=== PATIENT | female | born 1990 | race Caucasian/White ===

== ENCOUNTER 2016-05-21 18:48 | Emergency (ER) | payer MEDICAID, OTHER, SELFPAY ==
[~2016-05-21] VITALS: Ht 154.9 cm; Wt 68.0 kg
[~2016-05-21 18:48] MED LIST: OXYC1SOL
[2016-05-21] MEDS ORDERED: CITA20TA4 PO (19:10)
[2016-05-21] MEDS ORDERED: metroNIDAZOLE (FLAGYL) 500 MG TAB PO ONE (23:45)
[2016-05-21] MEDS ORDERED: FLAG500T PO (23:55)
[2016-05-22 00:06] VITALS: BP 117/69
== END 2016-05-22 00:10 | disposition home or self-care (01) ==
LOC: M ED 19:46
DX: N76.0 Acute vaginitis (principal); R21 Rash and other nonspecific skin eruption; Z88.1 Allergy status to other antibiotic agents

== ENCOUNTER → 2016-06-08 | Outpatient (CLI) | payer OTHER ==
[~2016-06-08] MED LIST changes: +CITA20TA4 PO; +FLAG500T PO
[2016-06-08 17:46] LABS: FOLLICLE STIMULATING HORMONE 5.6 mIU/mL; LUTEINIZING HORMONE 12.3 mIU/mL; PROGESTERONE 0.5 NG/ML; PROLACTIN 8.8 NG/ML
[2016-06-08 17:50] LABS: FREE T4 0.94 NG/DL (0.76-1.46)
== END ==
LOC: M SMT 13:12
PROVIDERS: ATTEND Specialist
DX: N93.8 Other specified abnormal uterine and vaginal bleeding (principal)

== ENCOUNTER → 2016-07-11 | Outpatient (REF) | payer OTHER | LOC: M LAB REF 19:36 | PROVIDERS: ATTEND Physician Assistant | DX: N39.0 Urinary tract infection, site not specified (principal) ==

== ENCOUNTER → 2016-07-17 | Outpatient (REF) | payer OTHER ==
[2016-07-17 18:15] LABS: MEAN CORPUSCULAR HEMOGLOBIN 30.3 pg (27.0-33.0); MEAN CORPUSCULAR HGB CONC 34.1 g/dl (32.0-36.5); MEAN CORPUSCULAR VOLUME 88.8 fl (80.0-96.0); RED CELL DISTRIBUTION WIDTH 11.8 % (11.5-14.5); WHITE BLOOD COUNT 8.9 K/mm3 (4.0-10.0)
[2016-07-17 19:09] LABS: ALBUMIN/GLOBULIN RATIO 1.11 (1.00-1.93); ALKALINE PHOSPHATASE 66 U/L (45-117); ALT/SGPT 88 U/L (12-78); ANION GAP 8 MEQ/L (8-16); AST/SGOT 56 U/L (15-37); BILIRUBIN,TOTAL 0.6 MG/DL (0.2-1.0); BLOOD UREA NITROGEN 9 MG/DL (7-18); CARBON DIOXIDE LEVEL 27 MEQ/L (21-32); CHLORIDE LEVEL 103 MEQ/L (98-107); CHOLESTEROL LEVEL 180 MG/DL (<200); CREATININE FOR GFR 0.77 MG/DL (0.55-1.02); GLOMERULAR FILTRATION RATE > 60.0 (>60); GLUCOSE, FASTING 93 MG/DL (70-105); POTASSIUM SERUM 4.1 MEQ/L (3.5-5.1); SODIUM LEVEL 138 MEQ/L (136-145); TOTAL PROTEIN 7.6 GM/DL (6.4-8.2); TRIGLYCERIDES LEVEL 98 MG/DL (<150)
== END ==
LOC: M LAB REF 17:16
PROVIDERS: ATTEND Nurse Practitioner Family
DX: Z13.220 Encounter for screening for lipoid disorders (principal); Z13.29 Encounter for screening for other suspected endocrine disorder

== ENCOUNTER → 2016-08-13 | Outpatient (REF) | payer MEDICAID ==
[2016-08-13 13:59] LABS: CONTROL LINE HCG INT CTR LINE PRESENT
[2016-08-22 14:17] LABS: ALT 111 IU/L (0-40); GGT 15 IU/L (0-60); HAPTOGLOBIN 17 mg/dL (34-200); HCV NS5A DRUG RESISTANCE ASSAY Indicated (.); HEPATITIS C QUANTITATION 39850 IU/mL (.); NECROINFLAM SCORE 0.55 (0.00-0.17); NECROINFLAMM GRADE A2-Moderate activity (.); TOTAL BILIRUBIN 0.5 mg/dL (0.0-1.2)
== END ==
LOC: M SFHCPLAZ 10:36
PROVIDERS: ATTEND Internal Medicine Infectious Disease
DX: B19.20 Unspecified viral hepatitis C without hepatic coma (principal)

== ENCOUNTER → 2016-12-10 | Outpatient (REF) | payer SELFPAY ==
[~2016-12-10] MED LIST changes: +MACR100C43 PO; -OXYC1SOL; +OXYC1SOL3; +ZEPA1TAB
[2016-12-10 16:25] LABS: ALBUMIN 3.8 GM/DL (3.2-5.2); ALBUMIN/GLOBULIN RATIO 1.09 (1.00-1.93); BILIRUBIN,DIRECT 0.1 MG/DL (0.0-0.2); BILIRUBIN,TOTAL 0.5 MG/DL (0.2-1.0); TOTAL PROTEIN 7.3 GM/DL (6.4-8.2)
[2016-12-13 08:16] LABS: HEPATITIS C QUANTITATION HCV Not Detected IU/mL (.)
== END ==
LOC: M SFHCPLAZ 14:07
PROVIDERS: ATTEND Internal Medicine Infectious Disease
DX: B18.2 Chronic viral hepatitis C (principal)

== ENCOUNTER 2017-01-08 12:08 | Emergency (ER) | payer OTHER, SELFPAY ==
[~2017-01-08] VITALS: Ht 154.9 cm; Wt 71.1 kg
[~2017-01-08 12:08] MED LIST changes: -MACR100C43 PO; -ZEPA1TAB
[2017-01-08 12:09] VITALS: BP 120/68
[2017-01-08] MEDS ORDERED: ZEPA1TAB (12:16)
[2017-01-08 13:36] LABS: CONTROL LINE UCG INT CTR LINE PRESENT
[2017-01-08] MEDS ORDERED: MACR100C43 PO (13:44)
[2017-01-08] MEDS ORDERED: NITROFURANTOIN (MACROBID) 100 MG CAP PO ONE (13:45)
== END 2017-01-08 13:51 | disposition home or self-care (01) ==
LOC: M ED 12:08
DX: N39.0 Urinary tract infection, site not specified (principal); Z72.0 Tobacco use

== ENCOUNTER 2017-02-03 13:49 | Emergency (ER) | payer OTHER, SELFPAY ==
[~2017-02-03] VITALS: Ht 154.9 cm; Wt 65.9 kg
[2017-02-03 13:49] VITALS: BP 115/73
[~2017-02-03 13:49] MED LIST changes: +MACR100C43 PO; +ZEPA1TAB
== END 2017-02-03 14:00 | disposition left against medical advice (07) ==
LOC: M ED 13:49
DX: Z53.9 Procedure and treatment not carried out, unspecified reason (principal)

== ENCOUNTER 2017-02-15 12:21 | Day surgery (SDC) | payer OTHER, SELFPAY ==
[2017-02-15] MEDS ORDERED: KETOROLAC 30 MG/ML VIAL (J1885) IV (12:45)
[2017-02-15] MEDS ORDERED: ONDANSETRON 4MG/2ML VIAL (J2405) IV ×2 (12:45→19:45)
[2017-02-15 13:31] LABS: BASO % 0.3 % (0.0-1.0); EOS # 0.1 10^3/uL (0.0-0.50); EOS % 0.5 % (0.0-3.0); IMMATURE GRANULOCYTE % 0.2 % (0-0); LYMPH # 1.7 10^3/uL (1.5-6.5); LYMPH % 15.3 % (24.0-44.0); MEAN CORPUSCULAR HEMOGLOBIN 29.5 pg (27.0-33.0); MEAN CORPUSCULAR HGB CONC 33.3 g/dl (32.0-36.5); MEAN CORPUSCULAR VOLUME 88.6 fl (80.0-96.0); MONO # 0.6 10^3/uL (0.0-0.8); MONO % 5.3 % (0.0-5.0); NEUTROPHILS # 8.8 10^3/uL (1.8-7.7); NEUTROPHILS % 78.4 % (36.0-66.0); PLATELET COUNT, AUTOMATED 278 10^3/uL (150-450); RED CELL DISTRIBUTION WIDTH 11.8 % (11.5-14.5); WHITE BLOOD COUNT 11.2 10^3/uL (4.0-10.0)
[2017-02-15 13:58] LABS: ALBUMIN 3.5 GM/DL (3.2-5.2); ALKALINE PHOSPHATASE 40 U/L (45-117); ALT/SGPT 13 U/L (12-78); AMYLASE 27 U/L (25-115); ANION GAP 5 MEQ/L (8-16); AST/SGOT 11 U/L (7-37); BILIRUBIN,DIRECT 0.1 MG/DL (0.0-0.2); BILIRUBIN,TOTAL 0.7 MG/DL (0.2-1.0); BLOOD UREA NITROGEN 11 MG/DL (7-18); CALCIUM LEVEL 8.6 MG/DL (8.5-10.1); CARBON DIOXIDE LEVEL 29 MEQ/L (21-32); CHLORIDE LEVEL 104 MEQ/L (98-107); CREATININE FOR GFR 0.66 MG/DL (0.55-1.02); GLOMERULAR FILTRATION RATE > 60.0 (>60); GLUCOSE, FASTING 112 MG/DL (70-105); POTASSIUM SERUM 3.8 MEQ/L (3.5-5.1); SODIUM LEVEL 138 MEQ/L (136-145)
[2017-02-15 14:16] LABS: HCG, SERUM QUANTITATIVE 13549 MIU/ML
[2017-02-15] MEDS: METOCLOPRAMIDE INJ 10MG/2ML VIAL (J2765) IV (14:30)
[2017-02-15] MEDS: NS 1,000 ML IV ×2 (14:31→14:48)
[2017-02-15] MEDS: ACETAMINOPHEN 325 MG TAB PO (14:49)
[2017-02-15] MEDS: BUPIVACAINE HCL 0.25% 30 ML VIAL As Ordered (16:14)
[2017-02-15] MEDS ORDERED: fentaNYL 250 MCG/5 ML INJECTION (J3010) As Ordered (16:18)
[2017-02-15] MEDS ORDERED: PROPOFOL 200 MG/20 ML VIAL As Ordered (16:18)
[2017-02-15] MEDS ORDERED: LIDOCAINE 2% INJ 100 MG/5 ML SDV (FOR ANES.) As Ordered (16:18)
[2017-02-15] MEDS ORDERED: MIDAZOLAM INJ 2 MG/2 ML VIAL (J2250) As Ordered ×2 (16:18→17:58)
[2017-02-15] MEDS ORDERED: ROCURONIUM BROMIDE 50 MG/5 ML VIAL As Ordered (16:19)
[2017-02-15] MEDS ORDERED: GLYCOPYRROLATE INJ 0.2 MG/ML 2 ML VIAL As Ordered ×2 (16:19)
[2017-02-15] MEDS ORDERED: ONDANSETRON 4MG/2ML VIAL (J2405) As Ordered (16:19)
[2017-02-15] MEDS ORDERED: KETOROLAC 60 MG/2 ML VIAL (J1885) As Ordered (16:19)
[2017-02-15] MEDS ORDERED: dexameTHASONE 4 MG/ML 1ML VIAL (J1100) As Ordered ×2 (16:19)
[2017-02-15] MEDS ORDERED: NEOSTIGMINE 10 MG/10 ML VIAL (J2710) As Ordered (16:19)
[2017-02-15] MEDS: METHYLENE BLUE 0.5% (5MG/ML) 10 ML AMP (PROVAYBLUE)(Q9968 PER 1MG) As Ordered (16:19)
[2017-02-15] MEDS: ACETAMINOPHEN 650 MG SUPP As Ordered (17:40)
[2017-02-15] MEDS ORDERED: PHENYLephrine HCL 500 MCG/5 ML (100MCG/ML) SYRINGE (J2370) As Ordered ×2 (17:58→18:06)
[2017-02-15] MEDS ORDERED: ePHEDrine SULFATE 25 MG/5 ML(5MG/ML) SYRINGE As Ordered (18:06)
[2017-02-15] MEDS ORDERED: HYDROmorphone HCL 2 MG/ML 1ML VIAL (J1170) As Ordered (18:16)
[2017-02-15] MEDS: LIDOCAINE W/EPINEPHRINE 1% 20ML VIAL As Ordered (19:08)
[2017-02-15] MEDS ORDERED: fentaNYL 100 MCG/2 ML INJECTION (J3010) IV (19:45)
[2017-02-15] MEDS: LR 1,000 ML IV (19:45)
[2017-02-15] MEDS ORDERED: HYDROmorphone HCL 1 MG/ML SYRINGE (J1170) IV ×2 (19:45)
[2017-02-15] MEDS: PERCOCET 5MG/325MG TAB PO (21:02)
[2017-02-15] MEDS: IBUPROFEN 800 MG TAB PO (22:44)
[2017-02-16] MEDS: PERCOCET 5MG/325MG TAB PO ×2 (02:14→12:14)
[2017-02-16] MEDS: IBUPROFEN 800 MG TAB PO ×3 (05:10→17:47)
[2017-02-16 11:21] LABS: MEAN CORPUSCULAR HEMOGLOBIN 30.1 pg (27.0-33.0); MEAN CORPUSCULAR HGB CONC 33.7 g/dl (32.0-36.5); MEAN CORPUSCULAR VOLUME 89.3 fl (80.0-96.0); PLATELET COUNT, AUTOMATED 236 10^3/uL (150-450); WHITE BLOOD COUNT 18.8 10^3/uL (4.0-10.0)
[2017-02-16 12:49] LABS: IMMEDIATE SPIN CROSSMATCH 1 2
== END 2017-02-16 18:05 | disposition home or self-care (01) ==
LOC: M SDC 02-16 18:05 → M ED 12:21 → M SDC 16:21 → M OBS 21:15
DX: O00.101 Right tubal pregnancy without intrauterine pregnancy (principal); K66.1 Hemoperitoneum; N73.6 Female pelvic peritoneal adhesions (postinfective); B18.2 Chronic viral hepatitis C; R01.1 Cardiac murmur, unspecified; K21.9 Gastro-esophageal reflux disease without esophagitis; F41.9 Anxiety disorder, unspecified; F32.9 Major depressive disorder, single episode, unspecified; Z88.1 Allergy status to other antibiotic agents; Z79.899 Other long term (current) drug therapy; Z72.0 Tobacco use; Z86.59 Personal history of other mental and behavioral disorders; Z86.19 Personal history of other infectious and parasitic diseases
CPT/HCPCS: 59151

== ENCOUNTER → 2017-04-01 | Outpatient (REF) | payer OTHER ==
[2017-04-01 13:22] LABS: BASO # 0.1 10^3/uL (0.0-0.2); BASO % 0.7 % (0.0-1.0); EOS # 0.4 10^3/uL (0.0-0.50); EOS % 4.9 % (0.0-3.0); HEMATOCRIT 42.8 % (36.0-47.0); HEMOGLOBIN 13.7 g/dl (12.0-16.0); IMMATURE GRANULOCYTE % 0.3 % (0-0); LYMPH # 2.9 10^3/uL (1.5-6.5); LYMPH % 38.1 % (24.0-44.0); MEAN CORPUSCULAR VOLUME 90.7 fl (80.0-96.0); MONO # 0.6 10^3/uL (0.0-0.8); MONO % 7.2 % (0.0-5.0); NEUTROPHILS # 3.7 10^3/uL (1.8-7.7); NEUTROPHILS % 48.8 % (36.0-66.0); PLATELET COUNT, AUTOMATED 248 10^3/uL (150-450); RED BLOOD COUNT 4.72 10^6/uL (4.00-5.40); RED CELL DISTRIBUTION WIDTH 12.1 % (11.5-14.5); WHITE BLOOD COUNT 7.6 10^3/uL (4.0-10.0)
[2017-04-01 13:38] LABS: ALBUMIN 3.9 GM/DL (3.2-5.2); ALBUMIN/GLOBULIN RATIO 1.22 (1.00-1.93); ALKALINE PHOSPHATASE 53 U/L (45-117); ALT/SGPT 13 U/L (12-78); AST/SGOT 11 U/L (7-37); BILIRUBIN,DIRECT 0.1 MG/DL (0.0-0.2); BILIRUBIN,TOTAL 0.3 MG/DL (0.2-1.0); TOTAL PROTEIN 7.1 GM/DL (6.4-8.2)
[2017-04-03 08:06] LABS: HEPATITIS C QUANTITATION HCV Not Detected IU/mL (.)
== END ==
LOC: M SFHCPLAZ 10:49
DX: B18.2 Chronic viral hepatitis C (principal)

== ENCOUNTER 2017-05-09 19:54 | Emergency (ER) | payer OTHER ==
[2017-05-09 20:54] LABS: KETONE, URINE AUTO RFX TRACE mg/dL (NEGATIVE); LEUKOCYTE ESTERASE UR AUTO RFX NEGATIVE (NEGATIVE); NITRITE, URINE AUTO RFX NEGATIVE (NEGATIVE); RBC, URINE AUTO RFX 2 /HPF (0-3); SPECIFIC GRAVITY UR AUTO RFX 1.009 (1.002-1.035); SQUAM EPITHELIAL CELL UR AURFX 1 /HPF (0-6); WBC, URINE AUTO RFX 0 /HPF (0-3)
[2017-05-09] MEDS: metroNIDAZOLE (FLAGYL) 500 MG TAB PO (23:10)
[2017-05-09 23:31] LABS: CHLAMYDIA DNA AMPLIFICATION NEGATIVE (NEGATIVE); GC DNA AMPLIFICATION NEGATIVE (NEGATIVE)
== END 2017-05-09 23:11 | disposition home or self-care (01) ==
LOC: M ED 19:54
DX: N76.0 Acute vaginitis (principal); B18.2 Chronic viral hepatitis C; K21.9 Gastro-esophageal reflux disease without esophagitis; F17.210 Nicotine dependence, cigarettes, uncomplicated; F33.9 Major depressive disorder, recurrent, unspecified; F41.9 Anxiety disorder, unspecified; F19.10 Other psychoactive substance abuse, uncomplicated; Z88.1 Allergy status to other antibiotic agents; Z98.890 Other specified postprocedural states; Z86.19 Personal history of other infectious and parasitic diseases; Z87.42 Personal history of other diseases of the female genital tract; Z87.440 Personal history of urinary (tract) infections
CPT/HCPCS: 81001

== ENCOUNTER 2017-05-20 22:03 | Emergency (ER) | payer OTHER ==
[2017-05-21] MEDS: NS 1,000 ML IV (00:15)
[2017-05-21 00:21] LABS: APPEARANCE, URINE HAZY (CLEAR); BACTERIA, URINE AUTO NEGATIVE (NEGATIVE); BILIRUBIN, URINE AUTO NEGATIVE (NEGATIVE); BLOOD, URINE BLOOD NEGATIVE (NEGATIVE); COLOR, URINE YELLOW (YELLOW); GLUCOSE, URINE (UA) AUTO NEGATIVE (NEGATIVE); KETONE, URINE AUTO 1+ mg/dL (NEGATIVE); LEUKOCYTE ESTERASE, URINE AUTO 1+ (NEGATIVE); MUCUS, URINE SMALL (NEGATIVE); NITRITE, URINE AUTO NEGATIVE (NEGATIVE); PROTEIN, URINE AUTO NEGATIVE (NEGATIVE); RBC, URINE AUTO 4 /HPF (0-3); SPECIFIC GRAVITY URINE AUTO 1.014 (1.002-1.035); SQUAMOUS EPITHELIAL CELL UR AU 3 /HPF (0-6); UROBILINOGEN, URINE AUTO 0.2 mg/dL (0.0-2.0); WBC, URINE AUTO 1 /HPF (0-3)
[2017-05-21 00:25] LABS: CONTROL LINE HCG INT CTR LINE PRESENT; HCG, SERUM QUALITATIVE NEGATIVE (NEGATIVE)
[2017-05-21 00:30] LABS: BASO % 0.4 % (0.0-1.0); EOS % 0.4 % (0.0-3.0); HEMATOCRIT 42.9 % (36.0-47.0); HEMOGLOBIN 14.2 g/dl (12.0-16.0); IMMATURE GRANULOCYTE % 0.2 % (0-3.0); LYMPH # 1.2 10^3/uL (1.5-6.5); LYMPH % 26.2 % (24.0-44.0); MEAN CORPUSCULAR HEMOGLOBIN 28.6 pg (27.0-33.0); MEAN CORPUSCULAR HGB CONC 33.1 g/dl (32.0-36.5); MEAN CORPUSCULAR VOLUME 86.3 fl (80.0-96.0); MONO # 0.6 10^3/uL (0.0-0.8); MONO % 13.6 % (0.0-5.0); NEUTROPHILS # 2.7 10^3/uL (1.8-7.7); NEUTROPHILS % 59.2 % (36.0-66.0); PLATELET COUNT, AUTOMATED 176 10^3/uL (150-450); RED BLOOD COUNT 4.97 10^6/uL (4.00-5.40); RED CELL DISTRIBUTION WIDTH 11.9 % (11.5-14.5); WHITE BLOOD COUNT 4.5 10^3/uL (4.0-10.0)
[2017-05-21 00:34] LABS: ALBUMIN 3.8 GM/DL (3.2-5.2); ALBUMIN/GLOBULIN RATIO 1.27 (1.00-1.93); ALKALINE PHOSPHATASE 44 U/L (45-117); ALT/SGPT 16 U/L (12-78); ANION GAP 5 MEQ/L (8-16); AST/SGOT 18 U/L (7-37); BILIRUBIN,DIRECT 0.2 MG/DL (0.0-0.2); BILIRUBIN,TOTAL 0.5 MG/DL (0.2-1.0); BLOOD UREA NITROGEN 11 MG/DL (7-18); CALCIUM LEVEL 8.5 MG/DL (8.5-10.1); CARBON DIOXIDE LEVEL 26 MEQ/L (21-32); CHLORIDE LEVEL 107 MEQ/L (98-107); CREATININE FOR GFR 0.64 MG/DL (0.55-1.30); GLOMERULAR FILTRATION RATE > 60.0 (>60); GLUCOSE, FASTING 96 MG/DL (70-100); LIPASE 57 U/L (73-393); POTASSIUM SERUM 3.4 MEQ/L (3.5-5.1); SODIUM LEVEL 138 MEQ/L (136-145); TOTAL PROTEIN 6.8 GM/DL (6.4-8.2)
== END 2017-05-21 02:32 | disposition home or self-care (01) ==
LOC: M ED 22:03
DX: K52.9 Noninfective gastroenteritis and colitis, unspecified (principal); Z87.59 Personal history of other complications of pregnancy, childbirth and the puerperium; Z88.1 Allergy status to other antibiotic agents
CPT/HCPCS: 74176

== ENCOUNTER → 2017-08-08 | Outpatient (CLI) | payer OTHER ==
[~2017-08-08] MED LIST changes: -CITA20TA4 PO; -FLAG500T PO; +ISOVUE-370 76% 100ML VIAL (Q9967) As Ordered; -MACR100C43 PO; -OXYC1SOL3; -ZEPA1TAB
== END ==
LOC: M RADPRO 08:26
DX: N93.9 Abnormal uterine and vaginal bleeding, unspecified (principal); N83.8 Other noninflammatory disorders of ovary, fallopian tube and broad ligament
CPT/HCPCS: 58340

== ENCOUNTER 2017-08-15 15:27 | Emergency (ER) | payer OTHER ==
[2017-08-15 18:07] LABS: KETONE, URINE AUTO RFX NEGATIVE (NEGATIVE); RBC, URINE AUTO RFX 2 /HPF (0-3); SPECIFIC GRAVITY UR AUTO RFX 1.019 (1.002-1.035); SQUAM EPITHELIAL CELL UR AURFX 2 /HPF (0-6)
[2017-08-15 18:09] LABS: LEUKOCYTE ESTERASE UR AUTO RFX 3+ (NEGATIVE); NITRITE, URINE AUTO RFX POSITIVE (NEGATIVE); WBC, URINE AUTO RFX 130 /HPF (0-3)
[2017-08-15] MEDS: CIPROFLOXACIN 500 MG TAB PO (18:42)
[2017-08-15] MEDS: metroNIDAZOLE (FLAGYL) 500 MG TAB PO (18:42)
[2017-08-15 19:25] LABS: CHLAMYDIA DNA AMPLIFICATION NEGATIVE (NEGATIVE); GC DNA AMPLIFICATION NEGATIVE (NEGATIVE)
== END 2017-08-15 18:44 | disposition home or self-care (01) ==
LOC: M ED 15:27
DX: N30.00 Acute cystitis without hematuria (principal); N76.0 Acute vaginitis; N73.9 Female pelvic inflammatory disease, unspecified; F17.210 Nicotine dependence, cigarettes, uncomplicated; Z87.59 Personal history of other complications of pregnancy, childbirth and the puerperium; Z88.1 Allergy status to other antibiotic agents; Z86.19 Personal history of other infectious and parasitic diseases; Z79.899 Other long term (current) drug therapy
CPT/HCPCS: 81001

== ENCOUNTER 2017-10-08 20:17 | Emergency (ER) | payer OTHER ==
[2017-10-08] MEDS: ONDANSETRON 4 MG ORAL DISINTEGRATING TAB (Q0162 PER 1MG) PO (21:25)
[2017-10-08 21:29] LABS: BASO # 0.1 10^3/uL (0.0-0.2); BASO % 0.5 % (0.0-1.0); EOS # 0.1 10^3/uL (0.0-0.50); EOS % 1.1 % (0.0-3.0); HEMATOCRIT 45.1 % (36.0-47.0); IMMATURE GRANULOCYTE % 0.2 % (0-3.0); LYMPH # 3.3 10^3/uL (1.5-6.5); LYMPH % 26.2 % (24.0-44.0); MEAN CORPUSCULAR HEMOGLOBIN 30.4 pg (27.0-33.0); MEAN CORPUSCULAR HGB CONC 33.3 g/dl (32.0-36.5); MEAN CORPUSCULAR VOLUME 91.3 fl (80.0-96.0); MONO # 0.9 10^3/uL (0.0-0.8); MONO % 7.1 % (0.0-5.0); NEUTROPHILS # 8.2 10^3/uL (1.8-7.7); NEUTROPHILS % 64.9 % (36.0-66.0); PLATELET COUNT, AUTOMATED 278 10^3/uL (150-450); RED BLOOD COUNT 4.94 10^6/uL (4.00-5.40); RED CELL DISTRIBUTION WIDTH 12.1 % (11.5-14.5); WHITE BLOOD COUNT 12.7 10^3/uL (4.0-10.0)
[2017-10-08 21:45] LABS: ALBUMIN 4.2 GM/DL (3.2-5.2); ALBUMIN/GLOBULIN RATIO 1.17 (1.00-1.93); ALKALINE PHOSPHATASE 55 U/L (45-117); ALT/SGPT 23 U/L (12-78); ANION GAP 5 MEQ/L (8-16); AST/SGOT 17 U/L (7-37); BILIRUBIN,DIRECT 0.2 MG/DL (0.0-0.2); BILIRUBIN,TOTAL 0.8 MG/DL (0.2-1.0); BLOOD UREA NITROGEN 9 MG/DL (7-18); CALCIUM LEVEL 9.5 MG/DL (8.5-10.1); CARBON DIOXIDE LEVEL 30 MEQ/L (21-32); CHLORIDE LEVEL 104 MEQ/L (98-107); CREATININE FOR GFR 0.78 MG/DL (0.55-1.30); GLOMERULAR FILTRATION RATE > 60.0 (>60); GLUCOSE, FASTING 141 MG/DL (70-100); POTASSIUM SERUM 4.1 MEQ/L (3.5-5.1); SODIUM LEVEL 139 MEQ/L (136-145); TOTAL PROTEIN 7.8 GM/DL (6.4-8.2)
[2017-10-08 22:20] LABS: KETONE, URINE AUTO RFX 1+ mg/dL (NEGATIVE); MUCUS, URINE RFX SMALL (NEGATIVE); NITRITE, URINE AUTO RFX NEGATIVE (NEGATIVE); RBC, URINE AUTO RFX 2 /HPF (0-3); SPECIFIC GRAVITY UR AUTO RFX 1.008 (1.002-1.035); SQUAM EPITHELIAL CELL UR AURFX 1 /HPF (0-6); WBC, URINE AUTO RFX 1 /HPF (0-3)
[2017-10-08 22:30] LABS: LEUKOCYTE ESTERASE UR AUTO RFX TRACE (NEGATIVE)
== END 2017-10-08 23:15 | disposition home or self-care (01) ==
LOC: M ED 20:17
DX: A08.4 Viral intestinal infection, unspecified (principal); B19.20 Unspecified viral hepatitis C without hepatic coma; K21.9 Gastro-esophageal reflux disease without esophagitis; F41.9 Anxiety disorder, unspecified; F33.9 Major depressive disorder, recurrent, unspecified; N83.209 Unspecified ovarian cyst, unspecified side; F19.21 Other psychoactive substance dependence, in remission; Z88.1 Allergy status to other antibiotic agents; F17.210 Nicotine dependence, cigarettes, uncomplicated
CPT/HCPCS: Q0162

== ENCOUNTER 2017-12-09 14:56 | Emergency (ER) | payer OTHER ==
[2017-12-09 17:41] LABS: CHLAMYDIA DNA AMPLIFICATION NEGATIVE (NEGATIVE); GC DNA AMPLIFICATION NEGATIVE (NEGATIVE)
[2017-12-09 18:11] LABS: KETONE, URINE AUTO RFX NEGATIVE (NEGATIVE); LEUKOCYTE ESTERASE UR AUTO RFX NEGATIVE (NEGATIVE); NITRITE, URINE AUTO RFX NEGATIVE (NEGATIVE); RBC, URINE AUTO RFX 0 /HPF (0-3); SPECIFIC GRAVITY UR AUTO RFX 1.004 (1.002-1.035); SQUAM EPITHELIAL CELL UR AURFX 1 /HPF (0-6); WBC, URINE AUTO RFX 1 /HPF (0-3)
== END 2017-12-09 18:53 | disposition home or self-care (01) ==
LOC: M ED 14:56
DX: B37.3 Candidiasis of vulva and vagina (principal); K21.9 Gastro-esophageal reflux disease without esophagitis; F33.9 Major depressive disorder, recurrent, unspecified; F19.20 Other psychoactive substance dependence, uncomplicated; Z88.1 Allergy status to other antibiotic agents; F17.210 Nicotine dependence, cigarettes, uncomplicated
CPT/HCPCS: 81001

== ENCOUNTER 2018-03-22 18:41 | Emergency (ER) | payer MEDICAID, OTHER ==
[~2018-03-22] VITALS: Ht 154.9 cm; Wt 58.2 kg
[~2018-03-22 18:41] MED LIST changes: +CIPR-249 PO; +CITA20TA4 PO; +CLOT2CRE PV; +FLAG500T PO; +IBUP-1114 PO; +IBUP80TA PO; -ISOVUE-370 76% 100ML VIAL (Q9967) As Ordered; +MACR100C43 PO; +NORT10CA2 PO; +OXYC1SOL3; +PERC5TAB12 PO; +ZEPA1TAB; +ZOFR4TAB14 PO
[2018-03-22 19:29] LABS: URINE PREG TEST NEGATIVE (NEGATIVE)
[2018-03-22] MEDS ORDERED: ONDA4TAB6 PO (21:43)
[2018-03-22] MEDS ORDERED: FLAG500T PO (21:43)
[2018-03-22] MEDS ORDERED: DOXY100C PO (21:43)
[2018-03-22] MEDS ORDERED: ONDANSETRON 4 MG ORAL DISINTEGRATING TAB (Q0162 PER 1MG) PO ONE (21:45)
[2018-03-22] MEDS ORDERED: metroNIDAZOLE (FLAGYL) 500 MG TAB PO ONE (21:45)
[2018-03-22] MEDS ORDERED: DOXYCYCLINE HYCLATE 100 MG TAB PO ONE (21:45)
[2018-03-22 21:49] VITALS: BP 123/84
[2018-03-22 22:51] LABS: CHLAMYDIA DNA AMPLIFICATION NEGATIVE (NEGATIVE); GC DNA AMPLIFICATION NEGATIVE (NEGATIVE)
== END 2018-03-22 21:51 | disposition home or self-care (01) ==
LOC: M ED 18:41
DX: N73.9 Female pelvic inflammatory disease, unspecified (principal); N94.10 Unspecified dyspareunia; B19.20 Unspecified viral hepatitis C without hepatic coma; F19.10 Other psychoactive substance abuse, uncomplicated; F41.9 Anxiety disorder, unspecified; Z86.19 Personal history of other infectious and parasitic diseases; F17.200 Nicotine dependence, unspecified, uncomplicated; Z88.1 Allergy status to other antibiotic agents
CPT/HCPCS: 81001; 84703; 87210; 87491; 87591; 99284; Q0162

== ENCOUNTER → 2018-04-18 | Outpatient (REF) | payer OTHER ==
[~2018-04-18] MED LIST changes: +DOXY100C PO; +ONDA4TAB6 PO
[2018-04-18 15:31] LABS: CHLAMYDIA DNA AMPLIFICATION NEGATIVE (NEGATIVE); GC DNA AMPLIFICATION NEGATIVE (NEGATIVE)
== END ==
LOC: M LAB REF 13:28
PROVIDERS: ATTEND Specialist
DX: Z11.3 Encounter for screening for infections with a predominantly sexual mode of transmission (principal)

== ENCOUNTER → 2018-04-18 | Outpatient (REF) | payer OTHER | LOC: M LAB REF 13:40 | PROVIDERS: ATTEND Specialist | DX: Z12.4 Encounter for screening for malignant neoplasm of cervix (principal) ==

== ENCOUNTER 2018-07-30 18:49 | Emergency (ER) | payer OTHER ==
[~2018-07-30] VITALS: Ht 154.9 cm; Wt 62.7 kg
[~2018-07-30 18:49] MED LIST changes: -CITA20TA4 PO; +CITA20TA6 PO
[2018-07-30] MEDS ORDERED: CLOM50TA9 (18:56)
[2018-07-30] MEDS ORDERED: BACT800T5 PO (22:05)
[2018-07-30 22:10] VITALS: BP 123/69
[2018-07-30] MEDS ORDERED: BACTRIM 160MG/800MG DS TAB PO ONE (22:15)
== END 2018-07-30 22:15 | disposition home or self-care (01) ==
LOC: M ED 18:49
DX: R05 Cough (principal); L73.9 Follicular disorder, unspecified; B19.20 Unspecified viral hepatitis C without hepatic coma; Z88.8 Allergy status to other drugs, medicaments and biological substances; F12.10 Cannabis abuse, uncomplicated; F11.20 Opioid dependence, uncomplicated; F17.210 Nicotine dependence, cigarettes, uncomplicated

== ENCOUNTER → 2018-08-06 | Outpatient (CLI) | payer OTHER ==
[~2018-08-06] MED LIST changes: +BACT800T5 PO; +CLOM50TA9
[2018-08-06 18:37] LABS: FREE T4 0.98 NG/DL (0.76-1.46); THYROID STIMULATING HORMONE 1.71 uIU/ML (0.358-3.740)
[2018-08-06 18:39] LABS: ESTRADIOL 590.6 PG/ML; FOLLICLE STIMULATING HORMONE 3.8 mIU/mL; LUTEINIZING HORMONE 4.9 mIU/mL; PROGESTERONE 38.57 NG/ML; PROLACTIN 10.2 NG/ML
[2018-08-09 00:07] LABS: TESTOSTERONE FREE (DIRECT) 0.7 pg/mL (0.0-4.2)
== END ==
LOC: M SMT 15:44
PROVIDERS: ATTEND Specialist
DX: N93.8 Other specified abnormal uterine and vaginal bleeding (principal)

== ENCOUNTER → 2018-08-20 | Outpatient (REF) | payer OTHER, MEDICAID ==
[2018-08-20 13:44] LABS: APPEARANCE, URINE CLEAR (CLEAR); BACTERIA, URINE AUTO NEGATIVE (NEGATIVE); BILIRUBIN, URINE AUTO NEGATIVE (NEGATIVE); BLOOD, URINE BLOOD NEGATIVE (NEGATIVE); COLOR, URINE STRAW (YELLOW); GLUCOSE, URINE (UA) AUTO NEGATIVE (NEGATIVE); KETONE, URINE AUTO NEGATIVE (NEGATIVE); LEUKOCYTE ESTERASE, URINE AUTO NEGATIVE (NEGATIVE); NITRITE, URINE AUTO NEGATIVE (NEGATIVE); PROTEIN, URINE AUTO NEGATIVE (NEGATIVE); RBC, URINE AUTO 0 /HPF (0-3); SPECIFIC GRAVITY URINE AUTO 1.004 (1.002-1.035); SQUAMOUS EPITHELIAL CELL UR AU 0 /HPF (0-6); UROBILINOGEN, URINE AUTO 0.2 mg/dL (0.0-2.0); WBC, URINE AUTO 0 /HPF (0-3)
[2018-08-20 15:39] LABS: CHLAMYDIA DNA AMPLIFICATION NEGATIVE (NEGATIVE); GC DNA AMPLIFICATION NEGATIVE (NEGATIVE)
== END ==
LOC: M LAB REF 13:18
PROVIDERS: ATTEND Nurse Practitioner Adult Health
DX: N39.0 Urinary tract infection, site not specified (principal)

== ENCOUNTER → 2018-08-21 | Outpatient (CLI) | payer OTHER, MEDICAID ==
[2018-08-21 11:38] LABS: BASO % 0.9 % (0.0-1.0); EOS # 0.2 10^3/uL (0.0-0.50); EOS % 3.9 % (0.0-3.0); HEMATOCRIT 45.1 % (36.0-47.0); HEMOGLOBIN 14.6 g/dl (12.0-15.5); LYMPH # 1.8 10^3/uL (1.5-6.5); LYMPH % 37.8 % (24.0-44.0); MEAN CORPUSCULAR HEMOGLOBIN 29.9 pg (27.0-33.0); MEAN CORPUSCULAR HGB CONC 32.4 g/dl (32.0-36.5); MEAN CORPUSCULAR VOLUME 92.4 fl (80.0-96.0); MONO # 0.3 10^3/uL (0.0-0.8); MONO % 6.7 % (0.0-5.0); NEUTROPHILS # 2.3 10^3/uL (1.8-7.7); NEUTROPHILS % 50.5 % (36.0-66.0); PLATELET COUNT, AUTOMATED 243 10^3/uL (150-450); RED BLOOD COUNT 4.88 10^6/uL (4.00-5.40); WHITE BLOOD COUNT 4.6 10^3/uL (4.0-10.0)
[2018-08-21 12:01] LABS: HEMOGLOBIN A1c 5.2 %
[2018-08-21 12:15] LABS: ALT/SGPT 18 U/L (12-78); BILIRUBIN,TOTAL 0.7 MG/DL (0.2-1.0); BLOOD UREA NITROGEN 10 MG/DL (7-18); CALCIUM LEVEL 9.1 MG/DL (8.5-10.1); CARBON DIOXIDE LEVEL 30 MEQ/L (21-32); CHLORIDE LEVEL 107 MEQ/L (98-107); CHOLESTEROL LEVEL 204 MG/DL (<200); CHOLESTEROL RISK RATIO 2.582 (<5); CREATININE FOR GFR 0.82 MG/DL (0.55-1.30); FREE T4 1.16 NG/DL (0.76-1.46); GLOMERULAR FILTRATION RATE > 60.0 (>60); GLUCOSE, FASTING 89 MG/DL (70-100); HDL CHOLESTEROL 79 MG/DL (>40); LDL CHOLESTEROL 104 MG/DL (<100); NON-HDL-C 125 MG/DL; POTASSIUM SERUM 4.2 MEQ/L (3.5-5.1); SODIUM LEVEL 141 MEQ/L (136-145); TOTAL PROTEIN 7.3 GM/DL (6.4-8.2); TRIGLYCERIDES LEVEL 106 MG/DL (<150)
[2018-08-21 12:17] LABS: TOTAL 25(OH) VITAMIN D 26.9 NG/ML (30.0-100.0)
[2018-08-26 11:11] LABS: DRVV SCREEN 35.9 SEC
[2018-08-26 11:16] LABS: PTT LUPUS TYPE ANTICOAG SCREEN 0.9 (0-1.2)
[2018-08-26 14:31] LABS: ANTI THROMBIN 3 ANTIGEN IMMUNO 97 % (72-124); ANTI THROMBIN 3 FUNCT ACTIVITY 120 % (75-135); Lyme Disease IgG/IgM Antibodie <0.91 ISR (0.00-0.90); Lyme Disease IgM Ab Quantitati <0.80 index (0.00-0.79); PHOSPHOLIPIDS LEVEL 256 mg/dL (150-250); PROTEIN C FUNCTIONAL ACTIVITY 125 % (73-180); PROTEIN S FUNCTIONAL ACTIVITY 88 % (63-140)
== END ==
LOC: M LAB 10:36
PROVIDERS: ATTEND Family Medicine
DX: Z13.228 Encounter for screening for other metabolic disorders (principal); D68.8 Other specified coagulation defects

== ENCOUNTER → 2018-10-17 | Outpatient (REF) | payer OTHER, MEDICAID ==
[2018-10-17 19:00] LABS: URINE PREG TEST NEGATIVE (NEGATIVE)
[2018-10-17 19:02] LABS: APPEARANCE, URINE CLEAR (CLEAR); BACTERIA, URINE AUTO 1+ (NEGATIVE); BILIRUBIN, URINE AUTO NEGATIVE (NEGATIVE); BLOOD, URINE BLOOD NEGATIVE (NEGATIVE); COLOR, URINE YELLOW (YELLOW); GLUCOSE, URINE (UA) AUTO NEGATIVE (NEGATIVE); KETONE, URINE AUTO NEGATIVE (NEGATIVE); LEUKOCYTE ESTERASE, URINE AUTO NEGATIVE (NEGATIVE); MUCUS, URINE SMALL (NEGATIVE); NITRITE, URINE AUTO NEGATIVE (NEGATIVE); PROTEIN, URINE AUTO NEGATIVE (NEGATIVE); RBC, URINE AUTO 1 /HPF (0-3); SPECIFIC GRAVITY URINE AUTO 1.011 (1.002-1.035); SQUAMOUS EPITHELIAL CELL UR AU 6 /HPF (0-6); UROBILINOGEN, URINE AUTO 0.2 mg/dL (0.0-2.0); WBC, URINE AUTO 0 /HPF (0-3)
[2018-10-17 20:33] LABS: CHLAMYDIA DNA AMPLIFICATION NEGATIVE (NEGATIVE); GC DNA AMPLIFICATION NEGATIVE (NEGATIVE)
== END ==
LOC: M LAB REF 14:53
PROVIDERS: ATTEND Nurse Practitioner Family
DX: R30.0 Dysuria (principal); R10.9 Unspecified abdominal pain

== ENCOUNTER 2018-12-19 19:31 | Emergency (ER) | payer MEDICAID, OTHER ==
[~2018-12-19] VITALS: Ht 154.9 cm; Wt 63.6 kg
[2018-12-19 20:25] LABS: BASO # 0.1 10^3/uL (0.0-0.2); BASO % 0.5 % (0.0-1.0); EOS # 0.2 10^3/uL (0.0-0.5); EOS % 1.7 % (0.0-3.0); HEMATOCRIT 47.6 % (36.0-47.0); LYMPH # 3.3 10^3/uL (1.5-5.0); LYMPH % 32.7 % (24.0-44.0); MEAN CORPUSCULAR HEMOGLOBIN 30.2 pg (27.0-33.0); MEAN CORPUSCULAR HGB CONC 33.6 g/dl (32.0-36.5); MONO # 0.6 10^3/uL (0.0-0.8); MONO % 6.3 % (0.0-5.0); NEUTROPHILS # 5.9 10^3/uL (1.5-8.5); NEUTROPHILS % 58.5 % (36.0-66.0); PLATELET COUNT, AUTOMATED 270 10^3/uL (150-450); RED BLOOD COUNT 5.29 10^6/uL (4.00-5.40); WHITE BLOOD COUNT 10.1 10^3/uL (4.0-10.0)
[2018-12-19 20:48] LABS: ALBUMIN 4.4 GM/DL (3.2-5.2); ALT/SGPT 18 U/L (12-78); BILIRUBIN,DIRECT 0.2 MG/DL (0.0-0.2); BILIRUBIN,TOTAL 0.6 MG/DL (0.2-1.0); BLOOD UREA NITROGEN 12 MG/DL (7-18); CALCIUM LEVEL 9.4 MG/DL (8.5-10.1); CARBON DIOXIDE LEVEL 26 MEQ/L (21-32); CHLORIDE LEVEL 106 MEQ/L (98-107); CREATININE FOR GFR 0.79 MG/DL (0.55-1.30); GLOMERULAR FILTRATION RATE > 60.0 (>60); GLUCOSE, FASTING 81 MG/DL (70-100); POTASSIUM SERUM 3.7 MEQ/L (3.5-5.1); SODIUM LEVEL 139 MEQ/L (136-145); TOTAL PROTEIN 7.9 GM/DL (6.4-8.2)
[2018-12-19 20:57] VITALS: BP 123/80
[2018-12-22 10:24] LABS: HEPATITIS B SURFACE ANTIGEN NEGATIVE (NEGATIVE)
[2018-12-22 10:49] LABS: HEPATITIS B CORE ANTIBODY IGM NEGATIVE (NEGATIVE)
[2018-12-22 10:51] LABS: HEPATITIS A ANTIBODY IGM NEGATIVE (NEGATIVE)
[2018-12-22 13:05] LABS: HEPATITIS C VIRUS ABY INDEX > 11.0 INDEX (<0.8)
== END 2018-12-19 21:19 | disposition home or self-care (01) ==
LOC: M ED 19:31
DX: R53.81 Other malaise (principal); Z88.1 Allergy status to other antibiotic agents; F19.11 Other psychoactive substance abuse, in remission; F17.200 Nicotine dependence, unspecified, uncomplicated; Z86.19 Personal history of other infectious and parasitic diseases

== ENCOUNTER 2019-03-12 23:57 | Emergency (ER) | payer OTHER ==
[~2019-03-12] VITALS: Ht 154.9 cm; Wt 68.9 kg
[2019-03-13] MEDS ORDERED: COMPPAK PO (00:02)
--- NOTE | 2019-03-13 01:22 | REPVR ---
PROCEDURE INFORMATION: Exam: US Duplex Left Lower Extremity Veins, Limited Exam date and time: 03/13/19 (12:46am) Age: 28 years old Clinical indication: Left lower leg pain and redness for 8 days. Patient had acupuncture to the area of pain 8 days ago. TECHNIQUE: Imaging protocol: Real-time Duplex ultrasound of the Left Lower Extremity with 2-D ribeiro scale, color Doppler flow and spectral waveform analysis with image documentation. Limited exam focused on the left lower extremity veins. COMPARISON: No relevant prior studies available FINDINGS: Left deep veins: The common femoral, femoral, proximal profunda femoral and popliteal veins are patent without thrombus. Normal Doppler waveforms. Normal compressibility and/or augmentation response. Venous occlusion at the left tibio-peroneal trunk level. Left superficial veins: Unremarkable. Saphenofemoral junction is patent without thrombus. Soft tissues: Unremarkable. IMPRESSION: (+) left leg DVT, with venous occlusion at the left tibio-peroneal trunk level. Electronically signed by: Heaven Ng On 03/13/2019 01:21:57 AM
[2019-03-13] MEDS ORDERED: ENOXAPARIN 80 MG/0.8 ML SYRINGE (J1650) SC ONE ×2 (02:15→02:30)
[2019-03-13] MEDS ORDERED: LOVE1INJ SC (02:35)
[2019-03-13 02:42] VITALS: BP 126/78
[2019-03-13 03:00] LABS: INR 0.96; PROTHROMBIN TIME 12.4 SECONDS (11.8-14.0)
[2019-03-13] MEDS ORDERED: ACETAMINOPHEN TAB 650MG DOSE (2X325MG) PO ONE (03:00)
[2019-03-13 03:01] LABS: PARTIAL THROMBOPLASTIN TIME 23.8 SECONDS (25.0-38.4)
[2019-03-13 03:23] LABS: C REACTIVE PROTEIN QUANTITATIV 1.03 MG/DL (0.00-0.30)
[2019-03-17 11:43] LABS: PTT LUPUS TYPE ANTICOAG SCREEN 0.9 (0-1.2)
== END 2019-03-13 03:16 | disposition home or self-care (01) ==
LOC: M ED 23:57
DX: O22.30 Deep phlebothrombosis in pregnancy, unspecified trimester (principal); Z87.891 Personal history of nicotine dependence; Z79.899 Other long term (current) drug therapy; Z88.1 Allergy status to other antibiotic agents
CPT/HCPCS: 81240; 84702; 85300; 85301; 85303; 85305; 85384; 85610; 85730; 86038; 86140; 86147; 93971; 99283; J1650

== ENCOUNTER 2019-03-22 10:33 | Emergency (ER) | payer OTHER ==
[~2019-03-22] VITALS: Ht 154.9 cm; Wt 69.7 kg
[~2019-03-22 10:33] MED LIST changes: +COMPPAK PO; +LOVE1INJ SC
[2019-03-22 11:26] LABS: BASO % 0.4 % (0.0-1.0); EOS # 0.1 10^3/uL (0.0-0.5); EOS % 1.3 % (0.0-3.0); HEMATOCRIT 43.5 % (36.0-47.0); HEMOGLOBIN 14.5 g/dl (12.0-15.5); LYMPH # 3.1 10^3/uL (1.5-5.0); LYMPH % 33.2 % (24.0-44.0); MEAN CORPUSCULAR HGB CONC 33.3 g/dl (32.0-36.5); MEAN CORPUSCULAR VOLUME 90.1 fl (80.0-96.0); MONO # 0.6 10^3/uL (0.0-0.8); MONO % 6.4 % (0.0-5.0); NEUTROPHILS # 5.4 10^3/uL (1.5-8.5); NEUTROPHILS % 58.5 % (36.0-66.0); PLATELET COUNT, AUTOMATED 282 10^3/uL (150-450); RED BLOOD COUNT 4.83 10^6/uL (4.00-5.40); WHITE BLOOD COUNT 9.3 10^3/uL (4.0-10.0)
[2019-03-22 12:17] LABS: BLOOD UREA NITROGEN 16 MG/DL (7-18); CALCIUM LEVEL 8.6 MG/DL (8.5-10.1); CARBON DIOXIDE LEVEL 27 MEQ/L (21-32); CHLORIDE LEVEL 106 MEQ/L (98-107); GLOMERULAR FILTRATION RATE > 60.0 (>60); GLUCOSE, FASTING 83 MG/DL (70-100); HCG, SERUM QUANTITATIVE 30183 MIU/ML; POTASSIUM SERUM 3.9 MEQ/L (3.5-5.1); SODIUM LEVEL 139 MEQ/L (136-145)
[2019-03-22 13:05] LABS: CHLAMYDIA DNA AMPLIFICATION NEGATIVE (NEGATIVE); GC DNA AMPLIFICATION NEGATIVE (NEGATIVE)
[2019-03-22 14:16] VITALS: BP 120/73
--- NOTE | 2019-03-22 14:17 | REP ---
FIRST TRIMESTER OB ULTRASOUND 03/22/2019. Clinical history: 6 weeks 5 days by LMP with spotting. Transabdominal imaging using the bladder as an acoustic window shows the uterus anteverted. There is a gestational sac in the fundus. Within the sac, is a pole with a crown-rump length 6 mm corresponding to 6 weeks 3 days giving EDC 11/12/2019. heart activity noted at 128 bpm. No subchorionic bleed. No adnexal mass or free fluid. A yolk sac was visible. Left ovary is seen 2.5 x 1.4 x 1.6 cm. I cannot see any definite right ovarian tissue. Impression: 1. Single intrauterine gestation in the fundus at 6 weeks 3 days by crown-rump length with EDC 11/12/2019 and she is 6 weeks 5 days by LMP giving EDC 11/10/2019. Heart rate 128 and regular. No subchorionic bleed. 2. No pelvic free fluid or visible adnexal mass. Electronically Signed by Jose Gaspar MD 03/22/2019 08:29 P
== END 2019-03-22 14:37 | disposition home or self-care (01) ==
LOC: M ED 10:33
DX: O20.8 Other hemorrhage in early pregnancy (principal); Z3A.01 Less than 8 weeks gestation of pregnancy; Z87.59 Personal history of other complications of pregnancy, childbirth and the puerperium; Z79.01 Long term (current) use of anticoagulants; Z79.899 Other long term (current) drug therapy; Z88.1 Allergy status to other antibiotic agents

== ENCOUNTER → 2019-05-14 | Outpatient (REF) | payer OTHER ==
[~2019-05-14] MED LIST changes: +ENOX80IN3 SC; +ESTR2TAB4 PO; +PRED5TA PO; +PROG1CAP9 PO
[2019-05-14 13:55] LABS: HEMATOCRIT 41.4 % (36.0-47.0); HEMOGLOBIN 13.5 g/dl (12.0-15.5); MEAN CORPUSCULAR HEMOGLOBIN 29.7 pg (27.0-33.0); MEAN CORPUSCULAR HGB CONC 32.6 g/dl (32.0-36.5); MEAN CORPUSCULAR VOLUME 91.2 fl (80.0-96.0); PLATELET COUNT, AUTOMATED 277 10^3/uL (150-450); RED BLOOD COUNT 4.54 10^6/uL (4.00-5.40); WHITE BLOOD COUNT 8.2 10^3/uL (4.0-10.0)
[2019-05-14 15:46] LABS: CHLAMYDIA DNA AMPLIFICATION NEGATIVE (NEGATIVE); GC DNA AMPLIFICATION NEGATIVE (NEGATIVE)
[2019-05-15 10:29] LABS: HEPATITIS B SURFACE ANTIGEN NEGATIVE (NEGATIVE); HEPATITIS C VIRUS ABY INDEX > 11.0 INDEX (<0.8); HIV 1&2 SCREEN CENTAUR NEGATIVE (NEGATIVE); RUBELLA IgG QUALITATIVE IMMUNE (IMMUNE)
== END ==
LOC: M PLALAB 11:39
PROVIDERS: ATTEND Advanced Practice Midwife
DX: O98.411 Viral hepatitis complicating pregnancy, first trimester (principal); Z3A.00 Weeks of gestation of pregnancy not specified

== ENCOUNTER → 2019-06-18 | Outpatient (CLI) | payer OTHER ==
--- NOTE | 2019-06-18 18:16 | REP ---
Clinical: Anatomical evaluation. Comparison: 03/22/2019 . Findings: Examination demonstrates a single live intrauterine in variable presentation. motion is identified by technologist. Placenta is noted anterior and grade I without evidence for placenta previa or abruption. Amniotic fluid volume is normal. Cervix measures 4.4 cm in length and appears closed. No evidence for nuchal cord. Gestational age by LMP 19 weeks 2 days with DIANA 11/10/2019 . Gestational age by current measurements 19 weeks 6 days with DIANA 11/06/2019 . FHR equals 161 beats per minute. Estimated weight 326 grams ( 73rd percentile). Anatomical assessment demonstrates normal structures including cranium, choroid plexus, cavum, cerebellum/posterior fossa, facial features, lungs, four-chamber heart/ventricular outflow tracts, diaphragm, stomach, cord insertion/three-vessel cord, kidneys/bladder, spine, and extremities. Impression: Single live intrauterine in variable presentation demonstrating appropriate estimated weight. Anatomical assessment is complete and normal. No gross abnormalities are identified.
== END ==
LOC: M WHC 13:22
PROVIDERS: ATTEND Advanced Practice Midwife
DX: Z36.89 Encounter for other specified antenatal screening (principal); Z3A.19 19 weeks gestation of pregnancy

== ENCOUNTER → 2019-08-03 | Outpatient (REF) | payer OTHER | LOC: M PLALAB 14:42 | PROVIDERS: ATTEND Advanced Practice Midwife | DX: Z3A.01 Less than 8 weeks gestation of pregnancy (principal) ==

== ENCOUNTER → 2019-08-04 | Outpatient (REF) | payer OTHER | LOC: M WUC 17:30 | PROVIDERS: ATTEND Nurse Practitioner Family | DX: Z20.828 Contact with and (suspected) exposure to other viral communicable diseases (principal) ==

== ENCOUNTER → 2019-08-07 | Outpatient (REF) | payer OTHER ==
[2019-08-07 17:07] LABS: MEAN CORPUSCULAR HEMOGLOBIN 29.5 pg (27.0-33.0); MEAN CORPUSCULAR HGB CONC 32.5 g/dl (32.0-36.5); MEAN CORPUSCULAR VOLUME 90.9 fl (80.0-96.0); PLATELET COUNT, AUTOMATED 251 10^3/uL (150-450); WHITE BLOOD COUNT 13.6 10^3/uL (4.0-10.0)
== END ==
LOC: M PLALAB 13:54
PROVIDERS: ATTEND Advanced Practice Midwife
DX: Z3A.01 Less than 8 weeks gestation of pregnancy (principal)

== ENCOUNTER → 2019-09-21 | Outpatient (REF) | payer OTHER ==
[~2019-09-21] MED LIST changes: +DOCU100C16 PO; +PERCOCET PO
[2019-10-16 21:48] LABS: HEMATOCRIT 42.3 % (36.0-47.0); HEMOGLOBIN 13.7 g/dl (12.0-15.5); MEAN CORPUSCULAR HEMOGLOBIN 29.7 pg (27.0-33.0); MEAN CORPUSCULAR HGB CONC 32.4 g/dl (32.0-36.5); MEAN CORPUSCULAR VOLUME 91.6 fl (80.0-96.0); PLATELET COUNT, AUTOMATED 236 10^3/uL (150-450); RED BLOOD COUNT 4.62 10^6/uL (4.00-5.40); WHITE BLOOD COUNT 10.4 10^3/uL (4.0-10.0)
[2019-10-23 13:15] LABS: ALT/SGPT 19 U/L (12-78); BILIRUBIN,TOTAL 0.3 MG/DL (0.2-1.0); URIC ACID 4.1 MG/DL (2.6-6.0)
== END ==
LOC: M SFHCPLAZ 09:22
PROVIDERS: ATTEND Advanced Practice Midwife
DX: I10 Essential (primary) hypertension (principal)

== ENCOUNTER → 2019-10-10 17:40 | Emergency (ER) | payer OTHER ==
--- NOTE | 2019-11-13 15:36 | ECGEPIP ---
SINUS RHYTHM NONSPECIFIC ST & T CHANGES NO PRIOR DUE TO DOWNTIME SEE SCANNED DOWNTIME REPORT MTDD
[2019-11-23 14:59] LABS: HEMATOCRIT 40.8 % (36.0-47.0); HEMOGLOBIN 13.5 g/dl (12.0-15.5); MEAN CORPUSCULAR HEMOGLOBIN 29.7 pg (27.0-33.0); MEAN CORPUSCULAR HGB CONC 33.1 g/dl (32.0-36.5); MEAN CORPUSCULAR VOLUME 89.9 fl (80.0-96.0); PLATELET COUNT, AUTOMATED 220 10^3/uL (150-450); RED BLOOD COUNT 4.54 10^6/uL (4.00-5.40); WHITE BLOOD COUNT 12.1 10^3/uL (4.0-10.0)
[2020-01-03 11:49] LABS: BLOOD UREA NITROGEN 7 MG/DL (7-18); CALCIUM LEVEL 8.9 MG/DL (8.5-10.1); CARBON DIOXIDE LEVEL 22 MEQ/L (21-32); CHLORIDE LEVEL 107 MEQ/L (98-107); GLOMERULAR FILTRATION RATE > 60.0 (>60); GLUCOSE, FASTING 90 MG/DL (70-100); POTASSIUM SERUM 3.9 MEQ/L (3.5-5.1); SODIUM LEVEL 139 MEQ/L (136-145)
== END | disposition home or self-care (01) ==
LOC: M ED 17:40
DX: O99.89 Other specified diseases and conditions complicating pregnancy, childbirth and the puerperium (principal); R55 Syncope and collapse; Z3A.36 36 weeks gestation of pregnancy; Z86.718 Personal history of other venous thrombosis and embolism; Z79.01 Long term (current) use of anticoagulants

== ENCOUNTER → 2019-10-13 | Outpatient (REF) | payer OTHER | LOC: M SFHCWAGY 10:54 | PROVIDERS: ATTEND Advanced Practice Midwife | DX: Z34.02 Encounter for supervision of normal first pregnancy, second trimester (principal) ==

== ENCOUNTER 2019-10-29 10:09 | Inpatient (IN) | payer OTHER ==
[~2019-10-29] VITALS: Ht 154.9 cm; Wt 89.8 kg
[2019-10-29] VITALS (12 sets, daily range): BP systolic 98–134; BP diastolic 55–84
[~2019-10-29 10:09] MED LIST changes: -DOCU100C16 PO; -PERCOCET PO
[2019-10-29 11:34] LABS: HEMATOCRIT 39.4 % (36.0-47.0); HEMOGLOBIN 13.3 g/dl (12.0-15.5); MEAN CORPUSCULAR HEMOGLOBIN 29.8 pg (27.0-33.0); MEAN CORPUSCULAR HGB CONC 33.8 g/dl (32.0-36.5); MEAN CORPUSCULAR VOLUME 88.1 fl (80.0-96.0); PLATELET COUNT, AUTOMATED 213 10^3/uL (150-450); RED BLOOD COUNT 4.47 10^6/uL (4.00-5.40); WHITE BLOOD COUNT 11.2 10^3/uL (4.0-10.0)
[2019-10-29] MEDS: miSOPROStol 50 MCG 1/2 TAB (S0191) SL SCH ×3 (13:19→21:47)
[2019-10-30] VITALS (7 sets, daily range): BP systolic 119–139; BP diastolic 66–85
[2019-10-30] MEDS: miSOPROStol 50 MCG 1/2 TAB (S0191) SL SCH (02:01)
--- NOTE | 2019-10-30 08:20 | HPE ---
DATE OF ADMISSION: 10/29/2019. HISTORY OF PRESENT ILLNESS: She is a 29-year-old, G3, P0, 0, 2, 0, female at 39 weeks gestation by LMP, consistent with early ultrasound and presents for labor induction. Patient has a history of a DVT early in and was on Lovenox and subsequently Heparin. She is being induced in order to optimize the Heparin window for delivery. She denies contractions or vaginal bleeding. PAST MEDICAL HISTORY: 1. Hepatitis C. 2. History of drug use including Methamphetamines, heroin. 3. History of Chlamydia in 2013, 2015. 4. History of gastric ulcers. PAST SURGICAL HISTORY: 1. Surgery for ectopic x2. 2. Liver biopsy in 2016. ALLERGIES: Cefzil. SOCIAL HISTORY: The father of the baby is involved. Patient denies current alcohol or drug use. She does smoke half a pack of cigarettes per day. FAMILY HISTORY: Noncontributory. PHYSICAL EXAMINATION: VITALS: Blood pressure 118/66, pulse 105, temperature 96.5. GENERAL: In no apparent distress. HEAD AND NECK: Exam normal. LUNGS: Clear. HEART: Regular rate and rhythm. ABDOMEN: Nontender, gravid, heart tracing, Category 1. STERILE VAGINAL EXAM: Cervix long, closed, posterior. EXTREMITIES: Nontender. LABORATORY DATA: GBS negative. Blood type O+. ASSESSMENT: A 29-year-old, G3, P0, 0, 2, 0, female at 39 weeks gestation, who presents for labor induction. PLAN: Patient was admitted on 10/29/2019. Risks of induction were discussed. CANDACE
--- NOTE | 2019-10-30 08:42 | IPNPDOC ---
Text Note Date of Service The patient was seen on 10/30/19. NOTE Progress Remains comfortable. Rare UC. Cat I tracing SVE FT/long/-[address] Cooks catheter, unable to pass through inner os Misoprostol 25mcg placed vaginally. Reassess in 4 hours or prn VS,Fishbone, I+O VS, Fishbone, I+O Laboratory Tests 10/29/19 11:15 Vital Signs Date Time Temp Pulse Resp B/P (MAP) Pulse Ox O2 Delivery O2 Flow Rate FiO2 10/30/19 07:34 97.6 82 125/85 (98) 10/30/19 02:03 18 Florence Shin CNM Oct 30, 2019 08:42
[2019-10-30] MEDS ORDERED: miSOPROStol 25 MCG 1/4 TAB (S0191) PV ONE (08:45)
[2019-10-30] MEDS ORDERED: OXYTOCIN 30 UNITS IN 0.9% NaCl 500ML IV BAG (J2590) As Ordered ONE (13:28)
--- NOTE | 2019-10-30 13:28 | IPNPDOC ---
Text Note Date of Service The patient was seen on 10/30/19. NOTE Progress SROM clear fluid. Irregular UC FH Cat I SVE /-3, posterior. Will start pitocin. Consider cooks catheter insertion VS,Fishbone, I+O VS, Fishbone, I+O Vital Signs Date Time Temp Pulse Resp B/P (MAP) Pulse Ox O2 Delivery O2 Flow Rate FiO2 10/30/19 07:34 97.6 82 125/85 (98) 10/30/19 02:03 18 Florence Shin CNM Oct 30, 2019 13:28
[2019-10-30] MEDS ORDERED: OXYTOCIN DRIP 30 UNITS in IV 1 EA IV SCH (14:00)
[2019-10-30] MEDS ORDERED: LR 1,000 ML IV SCH (14:00)
[2019-10-30] MEDS ORDERED: BUTORPHANOL 2 MG/ML INJ (J0595) As Ordered ONE (16:24)
[2019-10-30] MEDS ORDERED: BUTORPHANOL 2 MG/ML INJ (J0595) IV ONE (16:30)
[2019-10-30] MEDS ORDERED: PROMETHAZINE INJ 25 MG/ML VIAL (J2550) IV ONE (16:30)
--- NOTE | 2019-10-30 17:04 | IPNPDOC ---
Text Note Date of Service The patient was seen on 10/30/19. NOTE Progress Reports UC are more uncomfortable Cat I tracing, UC irregular SVE /-2, clear fluid draining Cooks catheter placed, inflated with 60/40cc NS Stadol and phenergan given. VS,Fishbone, I+O VS, Fishbone, I+O Vital Signs Date Time Temp Pulse Resp B/P (MAP) Pulse Ox O2 Delivery O2 Flow Rate FiO2 10/30/19 16:31 20 Room Air 10/30/19 13:58 75 135/80 (98) 10/30/19 13:36 97.2 Florence Shin CNM Oct 30, 2019 17:04
[2019-10-30] MEDS ORDERED: FENTANYL 2MCG/ML ROPIVACAINE 0.2% IN 0.9% NACL 100ML IVBAG As Ordered ONE (21:21)
[2019-10-30] MEDS ORDERED: LACTATED RINGER'S 1000 ML IV PRN (21:55)
[2019-10-30] MEDS ORDERED: EPIDURAL COMMENT XX SCH (21:55)
[2019-10-30] MEDS ORDERED: EPIDURAL/PCA KEYS XX PRN (21:55)
[2019-10-30] MEDS ORDERED: diphenhydrAMINE 50MG/ML VIAL (J1200) IV PRN (21:55)
[2019-10-30] MEDS ORDERED: REFRIGERATOR IV KEYS XX PRN (21:55)
[2019-10-30] MEDS ORDERED: ePHEDrine SULFATE 25 MG/5 ML(5MG/ML) SYRINGE IV PRN (21:55)
[2019-10-30] MEDS ORDERED: ONDANSETRON 4MG/2ML VIAL IV PRN (21:55)
[2019-10-30] MEDS: FENTANYL/ROPIVACAINE/NACL BAG 100 ML EPIDURAL SCH (21:55)
[2019-10-30] MEDS ORDERED: NALOXONE INJ 0.4MG/1ML VIAL (J2310 PER 1MG) IV PRN (21:55)
--- NOTE | 2019-10-30 22:33 | IPNPDOC ---
Text Note Date of Service The patient was seen on 10/30/19. NOTE Comfortable with epidural Cat I tracing UC 4-5 minutes apart Clear fluid draining PV SVE /-2 Continue induction VS,Fishbone, I+O VS, Fishbone, I+O Vital Signs Date Time Temp Pulse Resp B/P (MAP) Pulse Ox O2 Delivery O2 Flow Rate FiO2 10/30/19 16:31 20 Room Air 10/30/19 13:58 75 135/80 (98) 10/30/19 13:36 97.2 Florence Shin CNM Oct 30, 2019 22:33
[2019-10-31] MEDS: FENTANYL/ROPIVACAINE/NACL BAG 100 ML EPIDURAL SCH (07:35)
[2019-10-31] MEDS: DOCUSATE SODIUM 100 MG CAP PO SCH ×2 (09:00→23:42)
[2019-10-31] MEDS: PRENATAL VITAMINS CHEWABLE TABLET PO SCH (09:00)
[2019-10-31] MEDS ORDERED: BICITRA 30ML SOLN UDC As Ordered ONE (09:51)
[2019-10-31] MEDS ORDERED: UNASYN 3 GM VIAL As Ordered ONE (09:52)
[2019-10-31] MEDS ORDERED: ceFAZolin 2 GM/D5W 50 ML IV BAG (J0690 PER 500MG) As Ordered ONE (09:57)
[2019-10-31] MEDS ORDERED: dexameTHASONE 4 MG/ML 1ML VIAL (J1100 PER 1MG) As Ordered ONE (09:58)
[2019-10-31] MEDS ORDERED: ePHEDrine SULFATE 25 MG/5 ML(5MG/ML) SYRINGE As Ordered ONE (09:58)
[2019-10-31] MEDS ORDERED: MORPHINE PRES-FREE INJ 10 MG/10 ML VIAL (J2274) As Ordered ONE (09:58)
[2019-10-31] MEDS ORDERED: AZITHROMYCIN INJ 500MG VIAL (J0456 PER 500MG) As Ordered ONE (09:58)
[2019-10-31] MEDS ORDERED: KETOROLAC 60MG 2ML VIAL As Ordered ONE (09:58)
[2019-10-31] MEDS ORDERED: PHENYLephrine HCL 500 MCG/5 ML (100MCG/ML) SYRINGE (J2370) As Ordered ONE (09:58)
[2019-10-31] MEDS ORDERED: ONDANSETRON 4MG/2ML VIAL As Ordered ONE (09:58)
[2019-10-31] MEDS ORDERED: BICITRA 30ML SOLN UDC PO ONE (10:00)
[2019-10-31] MEDS ORDERED: AZITHROMYCIN INJ 500 MG, VIAL MATE ADAPTER 1 EACH in D5W 250 ML IV ONE (10:00)
[2019-10-31] MEDS ORDERED: NALBUPHINE HCL 10 MG/ML AMP (J2300) IV PRN (10:15)
[2019-10-31] MEDS ORDERED: METOCLOPRAMIDE INJ 10MG/2ML VIAL (J2765 PER 1) IV PRN (10:15)
[2019-10-31] MEDS ORDERED: ONDANSETRON 4MG/2ML VIAL IV PRN ×3 (10:15→12:30)
[2019-10-31] MEDS ORDERED: NALOXONE INJ 0.4MG/1ML VIAL (J2310 PER 1MG) IV PRN ×2 (10:15)
[2019-10-31] MEDS ORDERED: diphenhydrAMINE 50MG/ML VIAL (J1200) IV PRN (10:15)
[2019-10-31] MEDS ORDERED: MIDAZOLAM INJ 2MG/2ML VIAL (J2250 PER 1MG) As Ordered ONE (10:22)
[2019-10-31 10:43] LABS: CORD GAS ABE A -0.9; CORD GAS HCO3 A 26.3 MEQ/L; CORD GAS O2 SAT A 21.3 %; CORD GAS PCO2 A 53.2 mmHg; CORD GAS PH A 7.312 UNITS; CORD GAS SBC A 21.9 MEQ/L; CORD GAS TCO2 A 27.9 MEQ/L
[2019-10-31 10:45] LABS: CORD GAS ABE V -1.7; CORD GAS HCO3 V 24.1 MEQ/L; CORD GAS O2 SAT V 46.8 %; CORD GAS PCO2 V 44.6 mmHg; CORD GAS PH V 7.35 UNITS; CORD GAS PO2 V 20.3 mmHg; CORD GAS SBC V 21.7 MEQ/L; CORD GAS TCO2 V 25.4 MEQ/L
[2019-10-31] MEDS: AMPICILLIN SOD/SULBACTAM SOD 3 GM in D5W MINI-BAG PLUS 100 ML IV SCH ×3 (11:00→23:42)
[2019-10-31] MEDS ORDERED: fentaNYL 100 MCG/2 ML INJECTION (J3010) As Ordered ONE (11:02)
[2019-10-31] MEDS ORDERED: propofoL 200 MG/20 ML VIAL As Ordered ONE ×2 (11:07→11:12)
[2019-10-31] MEDS ORDERED: ACETAMINOPHEN 1000MG 100ML IV BTL (OFIRMEV) (J0131 PER 10MG) As Ordered ONE (11:14)
[2019-10-31] MEDS ORDERED: OXYTOCIN DRIP 30 UNITS in IV 1 EA IV SCH (12:01)
[2019-10-31] MEDS ORDERED: PERCOCET 5MG/325MG TAB PO PRN (12:15)
[2019-10-31] MEDS ORDERED: PROMETHAZINE 25 MG TAB PO PRN (12:15)
[2019-10-31] MEDS ORDERED: RHOGAM 300 MCG (1500 IU) INJ (J2790) IM SCH (12:15)
[2019-10-31] MEDS ORDERED: MEASLES,MUMPS,RUBELLA VACCINE INJ (MMR-II) (90707) SC SCH (12:15)
[2019-10-31] MEDS ORDERED: ACETAMINOPHEN 500 MG TAB PO PRN (12:15)
[2019-10-31] MEDS ORDERED: oxyCODONE 5MG TAB PO PRN (12:30)
[2019-10-31] MEDS ORDERED: fentaNYL 100 MCG/2 ML INJECTION (J3010) IV PRN (12:30)
[2019-10-31] MEDS ORDERED: OXYTOCIN 30 UNITS IN 0.9% NaCl 500ML IV BAG (J2590) As Ordered ONE (12:33)
[2019-10-31 13:00] VITALS: BP 121/74
[2019-10-31 13:30] VITALS: BP 121/69
[2019-10-31 14:20] VITALS: BP 118/63
[2019-10-31] MEDS ORDERED: SLF 3 ML SYR IV PRN (14:45)
[2019-10-31] MEDS: KETOROLAC 30 MG/ML 1ML VIAL IV SCH ×2 (14:56→20:26)
[2019-10-31 16:26] VITALS: BP 126/69
[2019-10-31] MEDS: LR 1,000 ML IV SCH (17:52)
[2019-10-31 18:00] VITALS: BP 125/74
[2019-10-31 22:21] VITALS: BP 117/72
[2019-10-31] MEDS: SLF 3 ML SYR IV SCH (23:43)
[2019-11-01 01:59] VITALS: BP 98/57
[2019-11-01] MEDS: KETOROLAC 30 MG/ML 1ML VIAL IV SCH (02:03)
[2019-11-01] MEDS: LR 1,000 ML IV SCH ×4 (02:05→20:01)
[2019-11-01] MEDS: AMPICILLIN SOD/SULBACTAM SOD 3 GM in D5W MINI-BAG PLUS 100 ML IV SCH ×4 (05:31→22:51)
[2019-11-01] MEDS: SLF 3 ML SYR IV SCH ×3 (05:32→22:52)
[2019-11-01 06:55] VITALS: BP 99/62
[2019-11-01] MEDS: PRENATAL VITAMINS CHEWABLE TABLET PO SCH (08:11)
[2019-11-01] MEDS: DOCUSATE SODIUM 100 MG CAP PO SCH ×2 (08:11→20:39)
[2019-11-01 08:51] LABS: HEMOGLOBIN 11.1 g/dl (12.0-15.5); MEAN CORPUSCULAR HEMOGLOBIN 29.7 pg (27.0-33.0); MEAN CORPUSCULAR HGB CONC 32.6 g/dl (32.0-36.5); MEAN CORPUSCULAR VOLUME 90.9 fl (80.0-96.0); PLATELET COUNT, AUTOMATED 154 10^3/uL (150-450); RED BLOOD COUNT 3.74 10^6/uL (4.00-5.40); WHITE BLOOD COUNT 18.2 10^3/uL (4.0-10.0)
[2019-11-01 10:15] VITALS: BP 125/78
[2019-11-01] MEDS: IBUPROFEN 800 MG TAB PO SCH ×2 (10:50→17:24)
[2019-11-01] MEDS ORDERED: IBUP80TA PO (11:28)
[2019-11-01] MEDS ORDERED: DOCU100C16 PO (11:28)
[2019-11-01] MEDS ORDERED: PERCOCET PO (11:28)
[2019-11-01] MEDS ORDERED: INFLUENZA QUADRIVALENT PF VACCINE 0.5ML SYRINGE IM ONE (12:00)
[2019-11-01] MEDS: ENOXAPARIN 80MG/0.8ML SYRINGE (J1650 PER 10MG) SC SCH ×2 (12:29→23:51)
[2019-11-01 17:46] VITALS: BP 113/57
[2019-11-01] MEDS: PERCOCET 5MG/325MG TAB PO PRN (17:49)
[2019-11-01 19:48] VITALS: BP 113/57
[2019-11-01 22:00] VITALS: BP 142/74
[2019-11-02] MEDS: IBUPROFEN 800 MG TAB PO SCH ×2 (01:34→10:42)
[2019-11-02 01:45] VITALS: BP 125/70
[2019-11-02] MEDS: LR 1,000 ML IV SCH (05:24)
[2019-11-02] MEDS: SLF 3 ML SYR IV SCH (05:24)
[2019-11-02] MEDS: AMPICILLIN SOD/SULBACTAM SOD 3 GM in D5W MINI-BAG PLUS 100 ML IV SCH (05:24)
[2019-11-02] MEDS: PERCOCET 5MG/325MG TAB PO PRN (05:56)
[2019-11-02 06:00] VITALS: BP 138/87
[2019-11-02] MEDS: PRENATAL VITAMINS CHEWABLE TABLET PO SCH (08:08)
[2019-11-02] MEDS: DOCUSATE SODIUM 100 MG CAP PO SCH (08:08)
[2019-11-02 10:00] VITALS: BP 137/87
[2019-11-02] MEDS: ENOXAPARIN 80MG/0.8ML SYRINGE (J1650 PER 10MG) SC SCH (11:36)
== END 2019-11-02 13:45 | disposition home or self-care (01) | DRG 540 ==
LOC: M LDI 10:09 → M OBS 10-31 12:50
PROVIDERS: ADMIT Specialist; ATTEND Specialist
PROC: 3E0DXGC Introduction of Other Therapeutic Substance into Mouth and Pharynx, External Approach (ICD-10-PCS; 2019-10-29)
PROC: 10D00Z1 Extraction of Products of Conception, Low, Open Approach (ICD-10-PCS; principal; 2019-10-31 10:00)
DX: O62.0 Primary inadequate contractions (principal); O41.1230 Chorioamnionitis, third trimester, not applicable or unspecified; O10.92 Unspecified pre-existing hypertension complicating childbirth; O99.334 Smoking (tobacco) complicating childbirth; F17.210 Nicotine dependence, cigarettes, uncomplicated; Z37.0 Single live birth; Z3A.39 39 weeks gestation of pregnancy; Z86.718 Personal history of other venous thrombosis and embolism

== ENCOUNTER → 2020-04-27 | Outpatient (REF) | payer OTHER ==
[~2020-04-27] MED LIST changes: +DOCU100C16 PO; +PERCOCET PO
[2020-04-29 18:32] LABS: CHLAMYDIA DNA AMPLIFICATION NEGATIVE (NEGATIVE); GC DNA AMPLIFICATION NEGATIVE (NEGATIVE)
== END ==
LOC: M SFHCWAGY 17:12
PROVIDERS: ATTEND Obstetrics & Gynecology
DX: Z12.4 Encounter for screening for malignant neoplasm of cervix (principal); Z11.3 Encounter for screening for infections with a predominantly sexual mode of transmission; Z01.419 Encounter for gynecological examination (general) (routine) without abnormal findings

== ENCOUNTER → 2022-05-14 | Outpatient (CLI) | payer OTHER ==
[~2022-05-14] MED LIST changes: -DOXY100C PO; +DOXY100C3 PO
== END ==
LOC: M WHC 14:06
PROVIDERS: ATTEND Nurse Practitioner Family
DX: R10.2 Pelvic and perineal pain (principal); D25.2 Subserosal leiomyoma of uterus

== ENCOUNTER → 2022-06-27 | Outpatient (REF) | payer OTHER | LOC: M SFHCWAGY 18:04 | PROVIDERS: ATTEND Nurse Practitioner Family | DX: Z12.4 Encounter for screening for malignant neoplasm of cervix (principal) ==

== ENCOUNTER → 2023-06-05 | Outpatient (REF) | payer OTHER ==
[2023-06-05 14:11] LABS: Trichomonas vaginalis (AMP) NOT DETECTED (NEGATIVE)
[2023-06-05 14:34] LABS: GC DNA AMPLIFICATION NEGATIVE (NEGATIVE)
[2023-06-05 18:59] LABS: HEMOGLOBIN A1c 5.1 % (4.0-6.0)
[2023-06-05 19:05] LABS: ALBUMIN 4.2 G/DL (3.2-5.2); ALKALINE PHOSPHATASE 57 U/L (46-116); ALT/SGPT 10 U/L (7.0-40); AST/SGOT 11 U/L (<34); BILIRUBIN,TOTAL 0.6 MG/DL (0.3-1.2); BLOOD UREA NITROGEN 14 MG/DL (9-23); CALCIUM LEVEL 9.5 MG/DL (8.5-10.1); CARBON DIOXIDE LEVEL 29 MMOL/L (20-31); CHLORIDE LEVEL 108 MMOL/L (98-107); CHOLESTEROL LEVEL 193 MG/DL (<200); CHOLESTEROL RISK RATIO 3.45 (<5); CREATININE FOR GFR 0.69 MG/DL (0.55-1.30); GLOMERULAR FILTRATION RATE > 60.0 (>60); GLUCOSE, FASTING 79 MG/DL (60-100); HDL CHOLESTEROL 55.8 MG/DL (>40); LDL CHOLESTEROL 117.4 MG/DL (<100); NON-HDL-C 137.2 MG/DL; POTASSIUM SERUM 4.7 MMOL/L (3.5-5.1); SODIUM LEVEL 141 MMOL/L (136-145); TOTAL PROTEIN 7.3 G/DL (5.7-8.2); TRIGLYCERIDES LEVEL 99 MG/DL (<150)
[2023-06-05 19:06] LABS: THYROID STIMULATING HORMONE 0.877 uIU/ML (0.55-4.78); TOTAL 25(OH) VITAMIN D 17.3 NG/ML (20.0-100.0)
[2023-06-05 19:30] LABS: HIV 1&2 SCREEN NEGATIVE (NEGATIVE)
[2023-06-05 19:40] LABS: HEPATITIS C VIRUS ABY INDEX > 11.00 INDEX (<0.8)
== END ==
LOC: M LAB REF 11:46
PROVIDERS: ATTEND Physician Assistant
DX: Z11.9 Encounter for screening for infectious and parasitic diseases, unspecified (principal); R42 Dizziness and giddiness; E55.9 Vitamin D deficiency, unspecified; E66.3 Overweight

== ENCOUNTER 2023-12-04 18:19 | Emergency (ER) | payer OTHER ==
[~2023-12-04] VITALS: Ht 154.9 cm; Wt 55.5 kg
[~2023-12-04 18:19] MED LIST changes: +ONDA-282 PO; -ONDA4TAB6 PO
[2023-12-04 18:31] VITALS: BP 114/60; TEMP 97.7; O2SAT 100
[2023-12-04 19:06] LABS: HEMATOCRIT 40.8 % (36.0-47.0); HEMOGLOBIN 12.9 g/dl (12.0-15.5); MEAN CORPUSCULAR HEMOGLOBIN 28.6 pg (27.0-33.0); MEAN CORPUSCULAR HGB CONC 31.6 g/dl (32.0-36.5); MEAN CORPUSCULAR VOLUME 90.5 fl (80.0-96.0); PLATELET COUNT, AUTOMATED 269 10^3/uL (150-450); RED BLOOD COUNT 4.51 10^6/uL (4.00-5.40); WHITE BLOOD COUNT 8.2 10^3/uL (4.0-10.0)
[2023-12-04 19:30] LABS: ETHYL ALCOHOL (ETHANOL) < 0.003 % (0.000-0.010)
[2023-12-04 19:32] LABS: ALBUMIN 3.5 G/DL (3.2-5.2); ALKALINE PHOSPHATASE 75 U/L (46-116); ALT/SGPT 18 U/L (7.0-40); AST/SGOT 13 U/L (<34); BILIRUBIN,DIRECT < 0.1 MG/DL (<0.4); BILIRUBIN,TOTAL 0.2 MG/DL (0.3-1.2); BLOOD UREA NITROGEN 13 MG/DL (9-23); CALCIUM LEVEL 9.8 MG/DL (8.5-10.1); CARBON DIOXIDE LEVEL 30 MMOL/L (20-31); CHLORIDE LEVEL 108 MMOL/L (98-107); CREATININE FOR GFR 0.63 MG/DL (0.55-1.30); GLOMERULAR FILTRATION RATE > 60.0 (>60); GLUCOSE, FASTING 96 MG/DL (60-100); SALICYLATE LEVEL < 3.0 MG/DL (<30); SODIUM LEVEL 142 MMOL/L (136-145); TOTAL PROTEIN 6.7 G/DL (5.7-8.2)
[2023-12-04 19:34] LABS: THYROID STIMULATING HORMONE 2.087 uIU/ML (0.55-4.78)
[2023-12-04] MEDS ORDERED: HOME MED LIST COMPLETE! XX SCH (19:45)
[2023-12-04 20:05] LABS: AMPHETAMINES LEVEL URINE NEGATIVE (NEGATIVE); BARBITURATES URINE NEGATIVE (NEGATIVE); BENZODIAZEPINES URINE NEGATIVE (NEGATIVE); CANNABINOIDS URINE NEGATIVE (NEGATIVE); COCAINE METABOLITE URINE NEGATIVE (NEGATIVE); METHADONE URINE NEGATIVE (NEGATIVE); OPIATES URINE NEGATIVE (NEGATIVE); PHENCYCLIDINE URINE NEGATIVE (NEGATIVE)
== END 2023-12-04 20:50 | disposition home or self-care (01) ==
LOC: M ED 18:19
DX: F43.0 Acute stress reaction (principal); F17.200 Nicotine dependence, unspecified, uncomplicated; F12.10 Cannabis abuse, uncomplicated

== ENCOUNTER 2024-04-11 10:44 | Emergency (ER) | payer OTHER ==
[~2024-04-11] VITALS: Ht 154.9 cm; Wt 60.4 kg
[2024-04-11 13:31] VITALS: BP 102/68; TEMP 98.5; O2SAT 100
== END 2024-04-11 13:56 | disposition home or self-care (01) ==
LOC: M ED 10:44
DX: S69.92XA Unspecified injury of left wrist, hand and finger(s), initial encounter (principal); X58.XXXA Exposure to other specified factors, initial encounter; Y92.9 Unspecified place or not applicable; Y93.9 Activity, unspecified; Y99.9 Unspecified external cause status; K21.9 Gastro-esophageal reflux disease without esophagitis; Z86.718 Personal history of other venous thrombosis and embolism; Z86.19 Personal history of other infectious and parasitic diseases; F17.200 Nicotine dependence, unspecified, uncomplicated; Z88.1 Allergy status to other antibiotic agents

== ENCOUNTER 2024-06-30 14:49 | Emergency (ER) | payer OTHER ==
[~2024-06-30] VITALS: Ht 154.9 cm; Wt 55.7 kg
[2024-06-30] MEDS: LIDOCAINE 1% MDV 20ML VIAL SC ONE (18:30)
[2024-06-30] MEDS: NEOSPORIN TOP OINT 15GM TOP ONE (18:50)
[2024-06-30] MEDS ORDERED: CIPR-249 PO (19:14)
[2024-06-30] MEDS ORDERED: CLIN150C17 PO (19:14)
[2024-06-30] MEDS: CIPROFLOXACIN 500MG TABLET PO ONE (19:28)
[2024-06-30] MEDS: CLINDAMYCIN 150MG CAPSULE PO ONE (19:29)
[2024-06-30 19:34] VITALS: BP 111/61; TEMP 96.5; O2SAT 100
== END 2024-06-30 19:36 | disposition home or self-care (01) ==
LOC: M ED 14:49
DX: S91.342A Puncture wound with foreign body, left foot, initial encounter (principal); S91.341A Puncture wound with foreign body, right foot, initial encounter; X58.XXXA Exposure to other specified factors, initial encounter; Y92.9 Unspecified place or not applicable; Y93.9 Activity, unspecified; Y99.9 Unspecified external cause status; Z86.19 Personal history of other infectious and parasitic diseases; F41.9 Anxiety disorder, unspecified; K21.9 Gastro-esophageal reflux disease without esophagitis; Z87.440 Personal history of urinary (tract) infections; F17.200 Nicotine dependence, unspecified, uncomplicated; Z88.1 Allergy status to other antibiotic agents

== ENCOUNTER 2024-09-12 20:10 | Emergency (ER) | payer OTHER ==
[~2024-09-12] VITALS: Ht 154.9 cm; Wt 54.1 kg
[~2024-09-12 20:10] MED LIST changes: +CLIN150C17 PO; +CLOM50TA31; -CLOM50TA9
[2024-09-12 20:12] VITALS: BP 114/63; TEMP 98.2; O2SAT 100
== END 2024-09-12 23:00 | disposition left against medical advice (07) ==
LOC: M ED 20:10
DX: Z53.21 Procedure and treatment not carried out due to patient leaving prior to being seen by health care provider (principal)

== ENCOUNTER 2024-09-23 19:54 | Emergency (ER) | payer OTHER ==
[~2024-09-23] VITALS: Ht 154.9 cm; Wt 56.8 kg
[2024-09-23 22:05] VITALS: BP 111/63; TEMP 97.8; O2SAT 98
== END 2024-09-23 23:00 | disposition left against medical advice (07) ==
LOC: M ED 19:54
DX: Z53.21 Procedure and treatment not carried out due to patient leaving prior to being seen by health care provider (principal)

== ENCOUNTER 2025-01-13 17:34 | Emergency (ER) | payer MEDICAID, OTHER ==
[~2025-01-13] VITALS: Ht 154.9 cm; Wt 54.5 kg
[2025-01-13 22:21] VITALS: BP 130/70; TEMP 97.5; O2SAT 98
== END 2025-01-13 22:44 | disposition home or self-care (01) ==
LOC: M ED 17:34
DX: F43.0 Acute stress reaction (principal); B19.20 Unspecified viral hepatitis C without hepatic coma; F12.10 Cannabis abuse, uncomplicated; F41.9 Anxiety disorder, unspecified; F32.A Depression, unspecified; Z88.8 Allergy status to other drugs, medicaments and biological substances; Z79.899 Other long term (current) drug therapy; Z79.2 Long term (current) use of antibiotics